=== PATIENT | female | born 2005 | race Caucasian/White ===

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

== ENCOUNTER 2024-12-04 11:46 | Emergency (ER) | payer OTHER ==
[~2024-12-04] VITALS: Ht 167.6 cm; Wt 60.4 kg
[2024-12-04] MEDS ORDERED: ARIP1TAB4 (11:52)
[2024-12-04 13:19] VITALS: BP 118/59; TEMP 98.1; O2SAT 99
== END 2024-12-04 13:20 | disposition home or self-care (01) ==
LOC: M ED 11:46
DX: S30.0XXA Contusion of lower back and pelvis, initial encounter (principal); Y92.019 Unspecified place in single-family (private) house as the place of occurrence of the external cause; Y93.9 Activity, unspecified; Y99.9 Unspecified external cause status; M54.50 Low back pain, unspecified; W10.8XXA Fall (on) (from) other stairs and steps, initial encounter; Z88.8 Allergy status to other drugs, medicaments and biological substances